=== PATIENT | female | born 1995 | race Caucasian/White ===

== ENCOUNTER 2018-10-02 05:40 | Emergency (ER) | payer MEDICAID ==
[2018-10-02] MEDS ORDERED: AMMONIA INHALANT IH ONE (05:51)
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
[2018-10-02] MEDS ORDERED: ZOFRAN IV ONE (06:52)
[2018-10-02] MEDS ORDERED: NACL 0.9% 1000 ML 1,000 ML IV ONE ×2 (06:52→06:53)
[2018-10-02 10:25] VITALS: BP 120/62
== END 2018-10-02 12:15 | disposition home or self-care (01) ==
LOC: ED 05:40
DX: F10.129 Alcohol abuse with intoxication, unspecified (principal); R41.82 Altered mental status, unspecified; F17.200 Nicotine dependence, unspecified, uncomplicated; J45.909 Unspecified asthma, uncomplicated
CPT/HCPCS: 36415; 96361; 96374; 99284; G0480; J2405; J7030; 80320

== ENCOUNTER 2020-05-19 23:50 | Emergency (ER) | payer MEDICAID | END 2020-05-20 | disposition left against medical advice (07) | LOC: ED 23:50 | DX: J02.9 Acute pharyngitis, unspecified (principal); Z53.21 Procedure and treatment not carried out due to patient leaving prior to being seen by health care provider ==

== ENCOUNTER 2020-05-26 16:43 | Emergency (ER) | payer OTHER, MEDICAID ==
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
[2020-05-26 17:43] LABS: HCG Qualitative,Urine Negative (Negative)
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
[2020-05-27 02:40] VITALS: BP 130/66
== END 2020-05-27 02:17 | disposition home or self-care (01) ==
LOC: ED 16:43
DX: S00.93XA Contusion of unspecified part of head, initial encounter (principal); J45.909 Unspecified asthma, uncomplicated; F17.200 Nicotine dependence, unspecified, uncomplicated; Z79.899 Other long term (current) drug therapy; V49.59XA Passenger injured in collision with other motor vehicles in traffic accident, initial encounter; Y92.410 Unspecified street and highway as the place of occurrence of the external cause; Y93.89 Activity, other specified; Y99.8 Other external cause status
CPT/HCPCS: 70450; 72100; 72125; 81025

== ENCOUNTER 2021-06-23 23:12 | Outpatient (CLI) | payer MEDICAID ==
[2021-06-23 23:56] VITALS: BP 115/64
[2021-06-24] MEDS ORDERED: ACETAMINOPHEN 500 MG TAB PO ONE (00:27)
[2021-06-24] MEDS ORDERED: LACTATED RINGERS 1,000 ML IV ONE (00:27)
[2021-06-24 01:07] LABS: Hematocrit 34.2 % (30.3-42.9); Hemoglobin 11.1 gm/dl (10.1-14.3); Mean Corpuscular HGB Conc 32 % (30-34); Mean Corpuscular Volume 88 fl (79-97); Platelet Count 305 K/mm3 (140-440); Red Cell Distribution Width 13.8 % (13.2-15.2)
[2021-06-24 02:02] LABS: Alanine Aminotransferase 10 units/L (7-56); Albumin 3.2 g/dL (3.9-5); Blood Urea Nitrogen 9 mg/dL (7-17); Calcium 8.7 mg/dL (8.4-10.2); Hemolysis Index 1
[2021-06-24 02:25] LABS: BUN/Creatinine Ratio 15
== END 2021-06-24 02:08 | disposition home or self-care (01) ==
LOC: TRG 23:12 → APU 23:20 → TRG 06-24 02:08
PROVIDERS: ATTEND Obstetrics & Gynecology
DX: O98.513 Other viral diseases complicating pregnancy, third trimester (principal); U07.1 COVID-19; O99.213 Obesity complicating pregnancy, third trimester; E66.9 Obesity, unspecified; O99.513 Diseases of the respiratory system complicating pregnancy, third trimester; J45.909 Unspecified asthma, uncomplicated; Z3A.37 37 weeks gestation of pregnancy
CPT/HCPCS: 36415; 59025; 80053; 85027; 96360; J7120

== ENCOUNTER 2021-06-28 01:44 | Outpatient (CLI) | payer MEDICAID ==
[2021-06-28 02:06] VITALS: BP 116/58
--- NOTE | 2021-06-28 04:38 | Ultrasound Report ---
ULTRASOUND OBSTETRIC LIMITED ULTRASOUND BIOPHYSICAL PROFILE INDICATION / CLINICAL INFORMATION: well being ian. Clinical Gestational Age (GA) in weeks, days: 38, 0 TECHNIQUE: Transabdominal. COMPARISON: None available. FINDINGS: BREATHING MOVEMENT = 2 GROSS BODY MOVEMENT = 2 TONE = 2 QUALITATIVE AMNIOTIC FLUID VOLUME = 2 TOTAL BIOPHYSICAL SCORE = 8/8 HEART RATE (beats per minute): 158 AMNIOTIC FLUID INDEX (cm) = 16.2 (normal = 7-24 cm) PRESENTATION: Cephalic. Biparietal Diameter = 9.2 cm = 37, 2 weeks, days Head Circumference = 33.6 cm = 38, 3 weeks, days Abdominal Circumference = 35.2 cm = 39, 1 weeks, days Femur Length = 7.7 cm = 39, 4 weeks, days Average Ultrasound Age (AUA) = 38, 4 weeks, days Estimated Weight in grams (if calculated): 3631 Estimated Weight Growth Percentile (if calculated): 83 ADDITIONAL FINDINGS: No significant findings IMPRESSION: 1. Biophysical Score = 8/8 measurements as above. Signer Name: Rinku Wallace DO Signed: 06/28/2021 4:33 AM Workstation Name: [id number]
== END 2021-06-28 04:45 | disposition home or self-care (01) ==
LOC: TRG 01:44 → APU 01:48 → TRG 04:45
PROVIDERS: ATTEND Obstetrics & Gynecology Gynecology
DX: O36.8130 Decreased fetal movements, third trimester, not applicable or unspecified (principal); U07.1 COVID-19; Z3A.38 38 weeks gestation of pregnancy
CPT/HCPCS: 59025; 76816; 76819